=== PATIENT | female | born 1990 | race Caucasian/White ===

== ENCOUNTER 2018-02-11 15:29 | Emergency (ER) | payer BC ==
[2018-02-11 15:46] VITALS: RESP 16; TEMP 97.7
[2018-02-11] MEDS ORDERED: NS 1,000 ML IV ONE (16:00)
--- NOTE | 2018-02-11 16:05 | EDPHY ---
H & P Stated Complaint: pelvic cramping this am and more sever since noon . Time Seen by Provider: 02/11/18 15:36 HPI/ROS: Chief Complaint: Pelvic pain HPI: 28-year-old woman, G0, began having severe lower pelvic cramping this morning. Last normal menstrual. Was about a month ago. She did have an IUD removed in October because she and her boyfriend trying to get . Had some brownish discharge this morning and then started having some vaginal bleeding as well. Pain is a 10/10. She took 600 mg of ibuprofen 2 hr ago with no relief. No nausea or vomiting. Has also had some urinary frequency over the last day or 2. No back pain. No dysuria. No fevers or chills. No nausea or vomiting. There are no other aggravating or alleviating factors. Last intercourse was yesterday. Pain was not sudden in onset. Does not feel like prior menstrual cramping. ROS: 10 point Review of Systems is negative except as noted in the HPI. PMH: Denies Social History: Occasional smoking, occasional alcohol, occasional marijuana Family History: non-contributory Physical Exam: Gen: Awake, Alert, No Distress HEENT: Nose: no rhinorrhea Eyes: PERRLA, EOMI Mouth: Moist mucosa Neck: Supple, no JVD Chest: nontender, lungs clear to auscultation Heart: S1, S2 normal, no murmur Abd: Soft, moderate tenderness in the left adnexa and mild suprapubic, right pelvis and abdomen are nontender, no guarding Back: no CVA tenderness, no midline tenderness Ext: no edema, non-tender Skin: no rash Neuro: CN II-XII intact, Sensation grossly intact, Strength 5/5 in bilateral upper and lower extremities - Personal History LMP (Females 10-55): Now Current Tetanus/Diphtheria Vaccine: Unsure Current Tetanus Diphtheria and Acellular Pertussis (TDAP): Unsure - Medical/Surgical History Hx Asthma: No Hx Chronic Respiratory Disease: No Hx Diabetes: No Hx Cardiac Disease: No Hx Renal Disease: No Hx Cirrhosis: No Hx Alcoholism: No Hx HIV/AIDS: No Hx Splenectomy or Spleen Trauma: No Other PMH: ankle surgery - Social History Smoking Status: Current some day smoker Constitutional: Initial Vital Signs Temperature (C) 36.5 C 02/11/18 15:40 Heart Rate 66 03/22/18 15:40 Respiratory Rate 16 02/11/18 15:40 Blood Pressure 129/77 H 02/11/18 15:40 O2 Sat (%) 97 02/11/18 15:40 O2 Delivery Mode Room Air Allergies/Adverse Reactions: No Known Allergies Allergy (Verified 02/11/18 15:46) Home Medications: Medication Instructions Recorded NK [No Known Home Meds] 02/11/18 Medical Decision Making - Diagnostics Imaging Results: Imaging Impressions Pelvic/Renal Ultrasound 02/11/18 15:57 Impression: Normal pelvic ultrasound. Results called and discussed with Callum Harp M.D., on February 11, 2018 at 1728. Imaging: Discussed imaging studies w/ crew caller Radiologist ED Course/Re-evaluation: Pelvic ultrasound is negative. She is not . Blood work is unremarkable. Patient is improved here. Symptoms are likely secondary to menstrual cramping after having recently had a IUD removed. Will discharge with follow up with OBGYN, return for any concerns. - Data Points Laboratory Results: Laboratory Results 02/11/18 16:00 02/11/18 16:00 02/11/18 02/11/18 02/11/18 16:40 16:00 16:00 WBC RBC Hgb Hct MCV MCH MCHC RDW Plt Count MPV Neut % (Auto) Lymph % (Auto) [place] % (Auto) Eos % (Auto) Baso % (Auto) Nucleat RBC Rel Count Absolute Neuts (auto) Absolute Lymphs (auto) Absolute Monos (auto) Absolute Eos (auto) Absolute Basos (auto) Absolute Nucleated RBC Immature Gran % Immature Gran # Sodium 140 mEq/L mEq/L (135-145) Potassium 4.3 mEq/L mEq/L (3.5-5.2) Chloride 105 mEq/L mEq/L (97-110) Carbon Dioxide 24 mEq/l mEq/l (22-31) Anion Gap 11 mEq/L mEq/L (8-16) BUN 14 mg/dL mg/dL (7-23) Creatinine 0.7 mg/dL mg/dL (0.6-1.0) Estimated GFR > 60 Glucose 77 mg/dL mg/dL (70-100) Calcium 9.2 mg/dL mg/dL (8.5-10.4) Beta HCG, Qual NEGATIVE Urine Color YELLOW Urine Appearance CLEAR Urine pH 6.5 (5.0-7.5) Ur Specific [place] <= 1.005 (1.002-1.030) Urine Protein NEGATIVE (NEGATIVE) Urine Ketones NEGATIVE (NEGATIVE) Urine Blood TRACE H (NEGATIVE) Urine Nitrate NEGATIVE (NEGATIVE) Urine Bilirubin NEGATIVE (NEGATIVE) Urine Urobilinogen 0.2 EU EU (0.2-1.0) Ur Leukocyte Esterase NEGATIVE (NEGATIVE) Urine RBC 0-1 /hpf /hpf (0-3) Urine WBC NONE SEEN /hpf /hpf (0-3) Ur Epithelial Cells TRACE /lpf /lpf (NONE-1+) Urine Bacteria TRACE /hpf H /hpf (NONE SEEN) Urine Glucose NEGATIVE (NEGATIVE) 02/11/18 16:00 WBC 9.46 10^3/uL 10^3/uL (3.80-9.50) RBC 4.27 10^6/uL 10^6/uL (4.18-5.33) Hgb 13.1 g/dL g/dL (12.6-16.3) Hct 37.8 % L % (38.0-47.0) MCV 88.5 fL fL (81.5-99.8) MCH 30.7 pg pg (27.9-34.1) MCHC 34.7 g/dL g/dL (32.4-36.7) RDW 12.7 % % (11.5-15.2) Plt Count 308 10^3/uL 10^3/uL (150-400) MPV 9.0 fL fL (8.7-11.7) Neut % (Auto) 78.6 % H % (39.3-74.2) Lymph % (Auto) 14.5 % L % (15.0-45.0) [place] % (Auto) 5.6 % % (4.5-13.0) Eos % (Auto) 0.7 % % (0.6-7.6) Baso % (Auto) 0.3 % % (0.3-1.7) Nucleat RBC Rel Count 0.0 % % (0.0-0.2) Absolute Neuts (auto) 7.43 10^3/uL H 10^3/uL (1.70-6.50) Absolute Lymphs (auto) 1.37 10^3/uL 10^3/uL (1.00-3.00) Absolute Monos (auto) 0.53 10^3/uL 10^3/uL (0.30-0.80) Absolute Eos (auto) 0.07 10^3/uL 10^3/uL (0.03-0.40) Absolute Basos (auto) 0.03 10^3/uL 10^3/uL (0.02-0.10) Absolute Nucleated RBC 0.00 10^3/uL 10^3/uL (0-0.01) Immature Gran % 0.3 % % (0.0-1.1) Immature Gran # 0.03 10^3/uL 10^3/uL (0.00-0.10) Sodium Potassium Chloride Carbon Dioxide Anion Gap BUN Creatinine Estimated GFR Glucose Calcium Beta HCG, Qual Urine Color Urine Appearance Urine pH Ur Specific [place] Urine Protein Urine Ketones Urine Blood Urine Nitrate Urine Bilirubin Urine Urobilinogen Ur Leukocyte Esterase Urine RBC Urine WBC Ur Epithelial Cells Urine Bacteria Urine Glucose Medications Given: Discontinued Medications Morphine Sulfate (Morphine) 4 mg IVP ONCE ONE Stop: 02/11/18 16:52 Last Admin: 02/11/18 17:39 Dose: Not Given Morphine Sulfate (Morphine) 4 mg IVP EDNOW ONE Stop: 02/11/18 17:31 Last Admin: 02/11/18 17:30 Dose: 4 mg Departure - Departure Disposition: Home, Routine, Self-Care Clinical Impression: Pelvic pain in female Condition: Good Instructions: Pelvic Pain in Women (ED) Additional Instructions: Follow up with OBGYN in 3-4 days. May take ibuprofen, 600 mg 3 times a day. You may take acetaminophen, 1000 mg every 6 hr. Do not exceed 3000 mg in 24 hr. Return to the emergency department for increasing pain, uncontrolled nausea vomiting, fevers, chills, or any other concerns. Referrals: Suze Atkinson DO [Doctor of Osteopathy] - As per Instructions
[2018-02-11 16:15] LABS: PLATELET COUNT 308 10^3/uL (150-400)
[2018-02-11 18:18] VITALS: BP 112/74; PULSE 79; O2SAT 96
== END 2018-02-11 18:20 | disposition home or self-care (01) ==
LOC: CED 15:29
DX: R10.2 Pelvic and perineal pain (principal); F17.200 Nicotine dependence, unspecified, uncomplicated; E86.9 Volume depletion, unspecified
CPT/HCPCS: 76856-PO; 80048-PO; 81003-PO; 81015-PO; 84703-PO; 85025-PO; 96374; J2270